=== PATIENT | female | born 1965 | race Two or more races ===

== ENCOUNTER 2024-02-23 15:57 | Emergency (ER) | payer MEDICAID, OTHER ==
[~2024-02-23] VITALS: Ht 157.5 cm; Wt 64.7 kg
[2024-02-23] MEDS: cloNIDine HCL 0.1 MG TAB PO ONE (16:21)
[2024-02-23 17:29] LABS: Basophils # (auto) 0 10 ^3/uL (0-0.2); Basophils % (auto) 0.4 % (0.0-2.0); Eosinophils # (auto) 0.1 10 ^3/uL (0-0.8); Eosinophils % (auto) 2.3 % (0.0-7.0); Hematocrit 42.7 % (36.0-46.0); Hemoglobin 14.8 g/dL (12.2-16.2); Lymphocytes # (auto) 2.3 10 ^3/uL (0.4-5.4); Lymphocytes % (auto) 37.5 % (10.0-50.0); Mean Corpuscular Hemoglobin 33.6 pg (28.0-32.0); Mean Corpuscular Hgb Conc. 34.7 g/dL (32.0-36.0); Mean Corpuscular Volume 97.1 fL (80.0-100.0); Monocytes # (auto) 0.3 10 ^3/uL (0-1.3); Monocytes % (auto) 4.2 % (0.0-12.0); Neutrophils # (auto) 3.4 10 ^3/uL (1.6-8.6); Neutrophils % (auto) 55.6 % (37.0-80.0); Platelet Count (auto) 259 10^3/uL (140-450); Red Blood Cells 4.39 10^6/uL (4.0-5.20); Red Cell Distribution Width 13.3 % (11.8-14.3); White Blood Cell 6.1 10^3/uL (4.4-10.8)
[2024-02-23 17:47] LABS: Alanine Aminotransferase 29 U/L (7-40); Albumin 4.4 g/dL (3.2-4.8); Alkaline Phosphatase 107 U/L (46-116); Anion Gap 7 (5-15); Aspartate Aminotransferase 22 U/L (13-40); BUN/Creatinine Ratio 14.1 (10.0-20.0); Bilirubin, Total 0.5 mg/dL (0.2-1.0); Blood Urea Nitrogen 12 mg/dL (9-23); Calcium 9.7 mg/dL (8.7-10.4); Carbon Dioxide 29 mmol/L (20-30); Chloride 107 mmol/L (98-107); Glucose 114 mg/dL (74-106); Potassium 3.5 mmol/L (3.5-5.1); Sodium 143 mmol/L (136-145); Total Protein 6.9 g/dL (5.7-8.2)
[2024-02-23] MEDS: KETOROLAC TROMETH 30 MG/ML 1ML VIAL IM ONE (18:42)
[2024-02-23] MEDS ORDERED: LISI10TA34 PO (20:35)
[2024-02-23 21:09] VITALS: BP 136/87; PULSE 61; RESP 18; TEMP 97.7; O2SAT 97
== END 2024-02-23 21:11 | disposition home or self-care (01) ==
LOC: ER 15:57
DX: I16.0 Hypertensive urgency (principal); R51.9 Headache, unspecified; Z79.899 Other long term (current) drug therapy
CPT/HCPCS: 36415; 70450; 80053; 84484; 85025; 93005; 96372; 99285; J1885

== ENCOUNTER 2025-05-31 09:06 | Emergency (ER) | payer MEDICAID ==
[~2025-05-31] VITALS: Ht 160 cm; Wt 69.8 kg
[~2025-05-31 09:06] MED LIST: LISI10TA34 PO
--- NOTE | 2025-05-31 09:50 | ECG ---
[facility] Test Date: 2025-05-31 Test Time: 09:23:43 Pat Name: TALITA ROTH Department: ED Room: Gender: F Patient Access Specialist: JOANN : 1965 Requested By: DEEPA BLEVINS Order Number: [id number] Reading MD: Measurements Intervals [place] Rate: 73 P: 48 VA: 145 QRS: 40 QRSD: 90 T: 31 QT: 424 QTc: 468 Interpretive Statements Sinus rhythm Low voltage, precordial leads Borderline T abnormalities, anterior leads Please click the below link to view image of tracing.
--- NOTE | 2025-05-31 09:51 | ED.PDOC ---
Psychiatric HPI Comments 60 year-old female, with a Hx of HTN, presents to the ED with a chief complaint of heightened anxiety since her mom at [facility] on 04/23/25. Patient reports being unable to maintain her BP levels with medications since the incident. Blood Pressure is currently 189/120 upon ED arrival. Patient additionally reports anxiety is worsened when taking care of her moms estate. Patient states she has been drinking wine regularly to help with symptoms. There are no further complaints or modifying factors at this time. Patient denies symptoms of weakness, fatigue, fever, chills, or N/V/D. Chief Complaint: High Blood Pressure Time Seen by MD: 09:38 Reviewed Notes: Medications, Allergies Information Source: Patient Mode of Arrival: Ambulatory Timing: Weeks Duration: Since onset Presents with: Anxiety Associated signs and symptoms: Anxiety Past Medical History PAST MEDICAL HISTORY: HTN Surgical History: Denies all surgeries CUMULATIVE EFFECTS ANALYST History: No Pertinent CUMULATIVE EFFECTS ANALYST History Family History Family History: Reviewed,noncontributory to illness Social History Smoker: Non-Smoker Alcohol: Heavy Drugs: Denies Drug Use Lives In: Home Constitutional: denies: chills, diaphoresis, fatigue, fever, malaise, sweats, weakness, others EENTM: denies: blurred vision, double vision, ear bleeding, ear discharge, ear drainage, ear pain, ear ringing, eye pain, eye redness, hearing loss, mouth pain, mouth swelling, nasal discharge, nose bleeding, nose congestion, nose pain, photophobia, tearing, throat pain, throat swelling, voice changes, others Respiratory: denies: cough, hemoptysis, orthopnea, SOB at rest, shortness of breath, SOB with excertion, stridor, wheezing, others Cardiovascular: denies: chest pain, dizzy spells, diaphoresis, Dyspnea on exertion, edema, irregular heart beat, left arm pain, lightheadedness, palpitations, PND, syncope, others Gastrointestinal: denies: abdomen distended, abdominal pain, blood streaked bowels, constipated, diarrhea, dysphagia, difficulty swallowing, hematemesis, melena, nausea, poor appetite, poor fluid intake, rectal bleeding, rectal pain, vomiting, others Genitourinary: denies: abnormal vagina bleeding, burning, dyspareunia, dysuria, flank pain, frequency, hematuria, incontinence, pain, , vagina discharge, urgency, others Neurological: denies: dizziness, fainting, headache, left sided numbness, left sided weakness, numbness, paresthesia, pre-existing deficit, right sided numbness, right sided weakness, seizure, speech problems, tingling, tremors, weakness, others Musculoskeletal: denies: back pain, gout, joint pain, joint swelling, muscle pain, muscle stiffness, neck pain, others Integumetry: denies: bruises, change in color, change in hair/nails, dryness, laceration, lesions, lumps, rash, wounds, others Allergic/Immunocompromised: denies: Difficulty Healing, Frequent Infections, Hives, Itching, others Hematologic/Lymphatic: denies: anemia, blood clots, easy bleeding, easy bruising, swollen glands, others Endocrine: denies: excessive hunger, excessive sweating, excessive thirst, excessive urination, flushing, intolerance to cold, intolerance to heat, unexplained weight gain, unexplained weight loss, others Psychiatric: reports: anxiety; denies: bipolar disorder, depression, hopeless, panic disorder, schizophrenia, sleepless, suicidal, others All Other Systems: Reviewed and Negative Physical Exam General Appearance: Moderate Distress (Patient appears anxious ), Normal HEENT: Normal ENT Inspection Neck: Non-Tender, Normal, Normal Inspection Respiratory: No Accessory Muscle Use, No Respiratory Distress, Normal Breath Sounds Cardiovascular: No Edema, No JVD, No Murmur, No Gallop, Regular Rate/Rhythm Breast Exam: Deferred Gastrointestinal: No Organomegaly, Non Tender, No Pulsatile Mass, Normal Bowel Sounds, Soft Genitalia: Deferred Pelvic: Deferred Rectal: Deferred Extremities: No calf tenderness, Normal capillary refill, Normal inspection, Normal range of motion, Non-tender, No pedal edema Musculoskeletal : Apperance: Normal Neurologic: Alert, No Motor Deficits, Normal Affect, Normal Mood, No Sensory Deficits Cerebellar Function: NOT DONE Reflexes: NOT DONE Skin: Dry, Normal Color, Warm Lymphatic: No Adenopathy Was a procedure done? Was a procedure done?: No Psych Differential Dx Psych. Differential Dx: Anxiety OD Differential Dx: Substance Abuse X-Ray, Labs, Meds, VS Vital Signs Date Time Temp Pulse Resp B/P (MAP) Pulse Ox O2 Delivery O2 Flow Rate FiO2 05/31/25 11:33 162/127 (139) 05/31/25 10:15 67 18 97 Room Air 05/31/25 10:15 97.6 67 18 192/113 (139) 97 97.6 05/31/25 09:23 73 05/31/25 09:13 97.9 83 18 189/120 98 97.9 Current Medications Medications (Trade) Dose Ordered Sig/Nelly Route Start Time Stop Time Status Last Admin Lorazepam (Ativan Tablet) 2 mg ONCE ONCE PO 05/31/25 09:45 05/31/25 09:46 DC 05/31/25 09:57 Time of 1ST Reevaluation: 10:13 Reevaluation 1ST: Unchanged Patient Education/Counseling: Diagnosis, Treatment Family Education/Counseling: No Family Present Departure 1 Departure Time of Disposition: 12:03 (Patient is likely having anxiety reaction. We will discharge patient home with outpatient follow up) Impression: Primary Impression: Anxiety reaction Disposition: 01 HOME / SELF CARE / HOMELESS Condition: Stable Additional Instructions: It is important to follow up with the regular doctors and continue to take your regular medications. Discharged With: Self Critical Care Note Critical Care Time?: No Stability Stability form required: No Heart Score Heart Score: Heart Score Response (Comments) Value History N/A 0 EKG N/A 0 Age N/A 0 Risk Factors N/A 0 Troponin N/A 0 Total 0 I personally scribed for DEEPA BLEVINS MD ([email or web address]) on 05/31/25 at 09:51. Electronically submitted by Sindi [facility]). DEEPA BLEVINS MD May 31, 2025 09:51
[2025-05-31] MEDS: LORazepam 0.5 MG TAB PO ONE (09:57)
[2025-05-31 10:15] VITALS: RESP 18; TEMP 97.6; O2SAT 97
[2025-05-31] MEDS ORDERED: LORA-1121 PO (12:20)
[2025-05-31 12:37] VITALS: BP 139/92; PULSE 84
== END 2025-05-31 12:39 | disposition home or self-care (01) ==
LOC: ER 09:06
DX: F41.1 Generalized anxiety disorder (principal); I10 Essential (primary) hypertension; Z79.899 Other long term (current) drug therapy
CPT/HCPCS: 93005